=== PATIENT | male | born 1960 | race Caucasian/White ===

== ENCOUNTER 2023-05-24 07:39 | Emergency (ER) | payer OTHER ==
[~2023-05-24] VITALS: Ht 177.8 cm; Wt 81.0 kg
[2023-05-24 07:41] VITALS: O2SAT 96
[2023-05-24] MEDS ORDERED: NITROGLYCERIN 0.4MG TABLET SL SL PRN (08:00)
[2023-05-24] MEDS ORDERED: ASPIRIN 81MG TABLET PO ONE (08:00)
[2023-05-24 08:27] LABS: EOSINOPHILS % 1.9 % (0.0-5.0); HEMOGLOBIN. 15.2 g/dL (14.0-18.0); LYMPHOCYTES % 27.4 % (20.0-50.0); MEAN CORPUSCULAR HEMOGLOBIN 29.7 pg (28.0-32.0); MEAN CORPUSCULAR VOLUME 89.9 fL (80.0-94.0); NEUTROPHILS % 59.7 % (40.0-76.0); PLATELET 241 x1000/uL (130-400); RED BLOOD CELL COUNT 5.12 mill/uL (4.7-6.1); WHITE BLOOD COUNT 7.4 x1000/uL (4.5-11.0)
[2023-05-24 08:42] LABS: CHLORIDE 114 mEq/L (98-107); INDEX HEMOLYSI 1 (1-3); INDEX ICTERIC 1 (1-4); INDEX LIPEMIC 1 (1-3); POTASSIUM 3.5 mEq/L (3.5-5.1); SODIUM 142 mEq/L (136-145)
[2023-05-24 08:54] LABS: ALANINE AMINOTRANSFERASE 36 IU/L (13-61); ALBUMIN 3.5 g/dL (3.4-5.0); ASPARTATE AMINOTRANSFERASE 32 IU/L (15-37); BILIRUBIN TOTAL 1.4 mg/dL (0.1-1.0); CALCIUM 9.2 mg/dL (8.5-10.1); CARBON DIOXIDE 24 mEq/L (21-32); CREATININE 1.2 mg/dL (0.6-1.3); ETHANOL BLOOD < 10 mg/dL (-10); GLUCOSE 91 mg/dL (70-105); NT PRO B-TYPE NATRIURETIC PEP 13045 pg/mL (5-125); PROTEIN TOTAL 7.1 g/dL (6.0-8.3); UREA NITROGEN BLOOD 13 mg/dL (7-21)
[2023-05-24 08:59] LABS: TROPONIN I HIGH SENSITIVITY 106 ng/L (<78)
[2023-05-24 09:58] LABS: *AMPHETAMINES SCREEN URINE NEGATIVE (NEGATIVE); *BARBITURATES SCREEN URINE NEGATIVE (NEGATIVE); *BENZODIAZEPINES SCREEN URINE NEGATIVE (NEGATIVE); *COCAINE SCREEN URINE NEGATIVE (NEGATIVE); CANNABINOID URINE SCREEN NEGATIVE (NEGATIVE); ECSTASY MDMA SCREEN URINE NEGATIVE (NEGATIVE); METHADONE URINE SCREEN NEGATIVE (NEGATIVE); OPIATES URINE SCREEN NEGATIVE (NEGATIVE); PHENCYCLIDINE URINE SCREEN NEGATIVE (NEGATIVE)
[2023-05-24 14:16] VITALS: BP 138/96; PULSE 93; RESP 30; TEMP 98.2
[2023-05-27] MEDS ORDERED: SPIR25TA6 PO (15:15)
[2023-05-27] MEDS ORDERED: EMPA10TA PO (15:15)
[2023-05-27] MEDS ORDERED: FURO40TA5 PO (15:15)
[2023-05-27] MEDS ORDERED: CARV3.1242 PO (15:15)
[2023-05-27] MEDS ORDERED: ISOS10TA8 PO (15:15)
[2023-05-27] MEDS ORDERED: APIX5TAB PO (15:15)
[2023-05-27] MEDS ORDERED: AMLO5TAB88 PO (15:15)
== END 2023-05-24 14:21 | disposition short-term general hospital (02) ==
LOC: ER 07:39
DX: I50.9 Heart failure, unspecified (principal)
CPT/HCPCS: 80053; 80305; 80320; 83880; 85025; 84484; 36415; 71045; 93005; 99291; Z7610 ×3; G0480

== ENCOUNTER 2023-06-08 12:26 | Emergency (ER) | payer OTHER ==
[~2023-06-08] VITALS: Ht 177.8 cm; Wt 90.0 kg
[~2023-06-08 12:26] MED LIST: AMLO5TAB88 PO; APIX5TAB PO; CARV3.1242 PO; EMPA10TA PO; FURO40TA5 PO; ISOS10TA8 PO; SPIR25TA6 PO
[2023-06-08 12:32] VITALS: O2SAT 96
[2023-06-08 13:23] LABS: BASOPHILS % 0.7 % (0.0-2.0); EOSINOPHILS % 1.5 % (0.0-5.0); HEMATOCRIT. 44.2 % (42.0-52.0); HEMOGLOBIN. 14.6 g/dL (14.0-18.0); LYMPHOCYTES % 18.7 % (20.0-50.0); MEAN CORPUSCULAR HEMOGLOBIN 29.2 pg (28.0-32.0); MEAN CORPUSCULAR VOLUME 88.6 fL (80.0-94.0); MEAN PLATELET VOLUME 8.4 fl (7.4-10.4); MONOCYTES % 11.3 % (2.0-8.0); NEUTROPHILS % 67.8 % (40.0-76.0); PLATELET 227 x1000/uL (130-400); RED BLOOD CELL COUNT 4.99 mill/uL (4.7-6.1); RED CELL DISTRIBUTION WIDTH 16.8 % (11.6-14.6); WHITE BLOOD COUNT 7.3 x1000/uL (4.5-11.0)
[2023-06-08 13:34] LABS: CHLORIDE 109 mEq/L (98-107); INDEX HEMOLYSI 2 (1-3); INDEX ICTERIC 1 (1-4); INDEX LIPEMIC 2 (1-3); POTASSIUM 3.6 mEq/L (3.5-5.1); SODIUM 140 mEq/L (136-145)
[2023-06-08 13:36] LABS: CALCIUM 8.6 mg/dL (8.5-10.1)
[2023-06-08 13:45] LABS: ALANINE AMINOTRANSFERASE 27 IU/L (13-61); ALBUMIN 3.3 g/dL (3.4-5.0); ASPARTATE AMINOTRANSFERASE 28 IU/L (15-37); BILIRUBIN TOTAL 1.3 mg/dL (0.1-1.0); CARBON DIOXIDE 24 mEq/L (21-32); CREATININE 1.2 mg/dL (0.6-1.3); GLUCOSE 142 mg/dL (70-105); PROTEIN TOTAL 6.7 g/dL (6.0-8.3); TROPONIN I HIGH SENSITIVITY 66 ng/L (<78); UREA NITROGEN BLOOD 16 mg/dL (7-21)
[2023-06-08] MEDS ORDERED: ASPIRIN 325MG TABLET PO ONE (19:15)
[2023-06-08] MEDS ORDERED: KETOROLAC 15MG/ML VIAL IV ONE (20:15)
[2023-06-08 21:22] VITALS: BP 153/111; PULSE 88; RESP 21; TEMP 98
== END 2023-06-08 21:53 | disposition short-term general hospital (02) ==
LOC: ER 12:26 → CANBEDREQ 23:15
DX: R07.89 Other chest pain (principal); I50.9 Heart failure, unspecified; F11.90 Opioid use, unspecified, uncomplicated; I11.0 Hypertensive heart disease with heart failure; I25.10 Atherosclerotic heart disease of native coronary artery without angina pectoris; Z79.899 Other long term (current) drug therapy
CPT/HCPCS: 80053; 85025; 84484; 36415; 71045; 96374; 99285; J1885; Z7610 ×3

== ENCOUNTER 2023-06-26 19:41 | Inpatient (IN) | payer OTHER ==
[~2023-06-26] VITALS: Ht 175.3 cm; Wt 66.7 kg
[2023-06-26 21:02] LABS: BASOPHILS % 0.9 % (0.0-2.0); EOSINOPHILS % 1.4 % (0.0-5.0); HEMOGLOBIN. 14.4 g/dL (14.0-18.0); LYMPHOCYTES % 19.3 % (20.0-50.0); MEAN CORPUSCULAR HEMOGLOBIN 29.2 pg (28.0-32.0); MEAN CORPUSCULAR HGB CONC 32.9 g/dL (31.0-37.0); MEAN PLATELET VOLUME 7.7 fl (7.4-10.4); MONOCYTES % 13.5 % (2.0-8.0); NEUTROPHILS % 64.9 % (40.0-76.0); PLATELET 251 x1000/uL (130-400); RED BLOOD CELL COUNT 4.94 mill/uL (4.7-6.1); RED CELL DISTRIBUTION WIDTH 16.1 % (11.6-14.6); WHITE BLOOD COUNT 7.5 x1000/uL (4.5-11.0)
[2023-06-26 21:04] LABS: CHLORIDE 105 mEq/L (98-107); INDEX HEMOLYSI 1 (1-3); INDEX ICTERIC 1 (1-4); INDEX LIPEMIC 1 (1-3); POTASSIUM 3.2 mEq/L (3.5-5.1); SODIUM 138 mEq/L (136-145)
[2023-06-26 21:15] LABS: ALANINE AMINOTRANSFERASE 25 IU/L (13-61); ALBUMIN 3.7 g/dL (3.4-5.0); ASPARTATE AMINOTRANSFERASE 27 IU/L (15-37); CALCIUM 8.8 mg/dL (8.5-10.1); CARBON DIOXIDE 28 mEq/L (21-32); CREATININE 1.4 mg/dL (0.6-1.3); GLUCOSE 75 mg/dL (70-105); PROTEIN TOTAL 7.1 g/dL (6.0-8.3); TROPONIN I HIGH SENSITIVITY 72 ng/L (<78); UREA NITROGEN BLOOD 41 mg/dL (7-21)
[2023-06-26] MEDS ORDERED: LACTATED RINGERS 500ML 500 ML IV ONE (21:45)
[2023-06-26] MEDS ORDERED: POTASSIUM CHLORIDE 20MEQ/PACKET PO ONE (21:45)
[2023-06-26] MEDS ORDERED: LACTATED RINGERS 1,000 ML IV SCH (21:45)
[2023-06-27 00:08] LABS: TROPONIN I HIGH SENSITIVITY 75 ng/L (<78)
[2023-06-27 12:15] VITALS: BP 144/98; PULSE 73; RESP 20; TEMP 98
[2023-06-27 12:23] VITALS: BP 144/98; PULSE 73; RESP 20; TEMP 98
[2023-06-27] MEDS: LOSARTAN 25 MG TABLET PO SCH (14:32)
[2023-06-27] MEDS: FUROSEMIDE 40MG/4ML VIAL IVP SCH (14:32)
[2023-06-27 16:10] LABS: *AMPHETAMINES SCREEN URINE NEGATIVE (NEGATIVE); *BARBITURATES SCREEN URINE NEGATIVE (NEGATIVE); *BENZODIAZEPINES SCREEN URINE NEGATIVE (NEGATIVE); *COCAINE SCREEN URINE NEGATIVE (NEGATIVE); CANNABINOID URINE SCREEN NEGATIVE (NEGATIVE); ECSTASY MDMA SCREEN URINE NEGATIVE (NEGATIVE); OPIATES URINE SCREEN NEGATIVE (NEGATIVE); PHENCYCLIDINE URINE SCREEN NEGATIVE (NEGATIVE)
[2023-06-27 16:33] VITALS: BP 102/63; PULSE 80; RESP 19; TEMP 97.7
[2023-06-27 17:39] LABS: TROPONIN I HIGH SENSITIVITY 79 ng/L (<78)
[2023-06-27 19:54] LABS: HEPATITIS B SURFACE ANTIGEN NEGATIVE
[2023-06-27 20:00] VITALS: BP 144/86; PULSE 83; RESP 18; TEMP 97.7
[2023-06-27] MEDS ORDERED: ENOXAPARIN 80MG/0.8ML SYR SUBCUT NR (20:08)
[2023-06-27] MEDS: CARVEDILOL 6.25 MG TABLET PO SCH (21:28)
[2023-06-27 22:19] LABS: HEPATITIS C VIR.AB 1.79 INDEXVAL (0.00-0.80)
[2023-06-28] VITALS: BP 127/86; PULSE 71; RESP 18; TEMP 97.6
[2023-06-28 04:00] VITALS: BP 145/96; PULSE 80; RESP 20; TEMP 97.2
[2023-06-28 05:39] LABS: INR 1.1; PROTHROMBIN TIME 11.4 sec (9.6-11.0)
[2023-06-28 08:00] VITALS: BP 135/91; PULSE 63; RESP 18; TEMP 98.8
[2023-06-28] MEDS: CARVEDILOL 6.25 MG TABLET PO SCH ×2 (08:43→20:31)
[2023-06-28] MEDS: LOSARTAN 25 MG TABLET PO SCH (08:43)
[2023-06-28] MEDS: FUROSEMIDE 40MG/4ML VIAL IVP SCH (08:43)
[2023-06-28] MEDS: ENOXAPARIN 80MG/0.8ML SYR SUBCUT SCH ×2 (09:00→20:31)
[2023-06-28 12:00] VITALS: BP 132/91; PULSE 70; RESP 18; TEMP 97.5
[2023-06-28 16:00] VITALS: BP 133/84; PULSE 71; RESP 18; TEMP 97.8
[2023-06-28] MEDS ORDERED: CARV6.2548 MT (20:10)
[2023-06-28] MEDS ORDERED: FURO-151 MT (20:10)
[2023-06-28] MEDS ORDERED: LOSA25TA26 MT (20:10)
[2023-06-28 20:12] VITALS: BP 126/90; PULSE 64; RESP 18; TEMP 97.7
[2023-06-29] VITALS: BP 127/81; PULSE 64; RESP 18; TEMP 97.2
[2023-06-29 04:00] VITALS: BP 123/86; PULSE 70; RESP 18; TEMP 97.3
[2023-06-29 04:53] VITALS: BP 127/81; PULSE 64; TEMP 97.2; O2SAT 98
[2023-06-29 08:00] VITALS: BP 139/73; PULSE 75; RESP 20; TEMP 97.3
[2023-06-29] MEDS: FUROSEMIDE 40MG/4ML VIAL IVP SCH (08:58)
[2023-06-29] MEDS: CARVEDILOL 6.25 MG TABLET PO SCH (09:11)
[2023-06-29] MEDS: ENOXAPARIN 80MG/0.8ML SYR SUBCUT SCH (09:11)
[2023-06-29] MEDS: LOSARTAN 25 MG TABLET PO SCH (09:11)
[2023-06-29 12:00] VITALS: BP 109/77; PULSE 71; RESP 20; TEMP 97.6
== END 2023-06-29 14:00 | disposition home or self-care (01) | DRG 194 ==
LOC: ER 19:41 → 7WST 06-27 02:06 → EDBEDREQ 06-27 02:17
PROVIDERS: ADMIT Internal Medicine; ATTEND Internal Medicine
DX: I11.0 Hypertensive heart disease with heart failure (principal); N17.9 Acute kidney failure, unspecified; I20.0 Unstable angina; I50.23 Acute on chronic systolic (congestive) heart failure; E11.9 Type 2 diabetes mellitus without complications; I45.10 Unspecified right bundle-branch block; E87.6 Hypokalemia; Z87.891 Personal history of nicotine dependence; Z86.711 Personal history of pulmonary embolism; Z79.01 Long term (current) use of anticoagulants; Z79.899 Other long term (current) drug therapy; Z79.4 Long term (current) use of insulin
CPT/HCPCS: 36415; 71045; 80053; 80305; 83880; 84484; 85025; 86803; 87340; 87426; 93005; 99285; J1650; J1940

== ENCOUNTER 2023-07-12 11:57 | Emergency (ER) | payer OTHER ==
[~2023-07-12] VITALS: Ht 170.2 cm; Wt 74.0 kg
[~2023-07-12 11:57] MED LIST changes: -AMLO5TAB88 PO; +CARV6.2548 MT; +FURO-151 MT; -FURO40TA5 PO; +LOSA25TA26 MT
[2023-07-12 12:05] VITALS: O2SAT 97
[2023-07-12 12:47] LABS: BASOPHILS % 1.2 % (0.0-2.0); EOSINOPHILS % 2.3 % (0.0-5.0); HEMATOCRIT. 42.7 % (42.0-52.0); HEMOGLOBIN. 14.1 g/dL (14.0-18.0); LYMPHOCYTES % 20.9 % (20.0-50.0); MEAN CORPUSCULAR HEMOGLOBIN 29.9 pg (28.0-32.0); MEAN CORPUSCULAR HGB CONC 33.1 g/dL (31.0-37.0); MEAN CORPUSCULAR VOLUME 90.4 fL (80.0-94.0); MEAN PLATELET VOLUME 7.7 fl (7.4-10.4); MONOCYTES % 11.9 % (2.0-8.0); NEUTROPHILS % 63.7 % (40.0-76.0); PLATELET 269 x1000/uL (130-400); RED BLOOD CELL COUNT 4.73 mill/uL (4.7-6.1); RED CELL DISTRIBUTION WIDTH 15.9 % (11.6-14.6); WHITE BLOOD COUNT 8.4 x1000/uL (4.5-11.0)
[2023-07-12 12:56] LABS: CHLORIDE 108 mEq/L (98-107); INDEX HEMOLYSI 1 (1-3); INDEX ICTERIC 1 (1-4); INDEX LIPEMIC 1 (1-3); POTASSIUM 3.1 mEq/L (3.5-5.1); SODIUM 143 mEq/L (136-145)
[2023-07-12 12:58] LABS: INR 1.1; PARTIAL THROMBOPLASTIN TIME 33.1 sec (23.4-31.0); PROTHROMBIN TIME 12.2 sec (9.6-11.0)
[2023-07-12 14:31] LABS: ALANINE AMINOTRANSFERASE 26 IU/L (13-61); ALBUMIN 3.3 g/dL (3.4-5.0); ASPARTATE AMINOTRANSFERASE 21 IU/L (15-37); CALCIUM 8.9 mg/dL (8.5-10.1); CARBON DIOXIDE 27 mEq/L (21-32); CREATININE 1.3 mg/dL (0.6-1.3); GLUCOSE 88 mg/dL (70-105); NT PRO B-TYPE NATRIURETIC PEP 7355 pg/mL (5-125); PROTEIN TOTAL 6.8 g/dL (6.0-8.3); TROPONIN I HIGH SENSITIVITY 73 ng/L (<78); UREA NITROGEN BLOOD 17 mg/dL (7-21)
[2023-07-12 18:19] VITALS: BP 196/80; PULSE 90; RESP 17; TEMP 98.2
[2023-07-12 18:28] LABS: BILIRUBIN TOTAL 1.4 mg/dL (0.1-1.0)
== END 2023-07-12 18:36 | disposition short-term general hospital (02) ==
LOC: ER 11:57 → CANBEDREQ 15:17 → ER 18:36
DX: R07.89 Other chest pain (principal); I11.0 Hypertensive heart disease with heart failure; I50.9 Heart failure, unspecified; E78.00 Pure hypercholesterolemia, unspecified
CPT/HCPCS: 36415; 71045; 76604; 80053; 83880; 84484; 85025; 93005; 93880; 99285